=== PATIENT | male | born 1985 | race Caucasian/White ===

== ENCOUNTER 2022-06-22 12:51 | Emergency (ER) | payer SELFPAY ==
[2022-06-22 13:01] VITALS: BP 146/86; PULSE 86; RESP 14; TEMP 36.4; O2SAT 99
--- NOTE | 2022-06-22 13:15 | DI.CT_ITS ---
Exam(s) CT THORACIC LUMBAR SPINE WO EXAM: CT THORACIC LUMBAR SPINE WO CLINICAL HISTORY: tree fell on him, pain. TECHNIQUE: Imaging Protocol: Axial computed tomography images with coronal and sagittal reformatted images were created and reviewed. COMPARISON: No exams were available for comparison FINDINGS: The examination is limited due to patient motion artifact. Bones: No fractures or dislocations are seen. The alignment of the spine is normal including the cerv icothoracic junction and the thoracolumbar junction. Soft tissues: The soft tissues are unremarkable. No large disk herniations are identified. Incidental note is made of an azygos lobe in the lungs. This is a normal variant. IMPRESSION: No acute fracture or subluxation in the thoracic or lumbar spine. RADIATION DOSE DELIVERED: 1,115.5mGy.cm Total DLP DATA REPOSITORY: All CT scans at this facility are submitted to the National Radiology Data Registry (NRDR) Dose Index Registry (DIR) with the [employer] ([employer]). RADIATION OPTIMIZATION: All CT scans at this facility use at least one of these dose optimization te chniques: automated exposure control; mA and/or kV adjustment per patient size (includes targeted exa ms where dose is matched to clinical indication); or iterative reconstruction.
--- NOTE | 2022-06-22 13:20 | ED.GENADUL_ITS ---
Discharge Plan Disposition Patient Disposition: Home Condition: Stable Discharge Details Clinical Impression: Contusion of back Primary Care Provider: Julita,Local ED Provider: Jeevan Fisher Home Meds and New Rx's Prescriptions: Continued ibuprofen 800 mg tablet 800 mg PO Q8H PRN (Reason: pain) Qty: 42 0RF cyclobenzaprine 5 mg tablet See Rx Instructions PO Q8H PRN (Reason: spasm) Qty: 60 0RF Label Comments: Pt has but hasnt really taken them Rx Instructions: 1-2 tabs PO every 8 hours PRN; Discharge Instructions Instructions: Contusion in Adults (ED) Additional Instructions: if pain continues in a week see your primary care provider if you have worsening pain, or new pain such as chest pain return to the emergency department Medical Decision Making 36 yo male with no chronic medical problems comes in with cc of back pain. He states a week ago he was on the ground helping take a branch down off a tree when the branch fell and landed on his back. Denies loc or head trauma. HAs had pain since that is mildly improved so came here for an evaluation. Denies head pain, chest pain, neck pain, abdomen pain, extremity pain. He does have a 2cm contusion of the mid back over l1. HAs mild tenderness to the lower thoracic and upper lumbar vertebrae, no stepoffs. No cervical spine tenderness. No saddle anesthesia, normal peripheral pulses and sensation. Will obtain ct thoracic and lumbar spine to evaluate for fracture. No chest or abdomen tenderness and no signs of trauma to the head so do not feel additional imaging indicated. imaging unremarkable and no new pain, suspect vertebral contusion. He is stable for d/c, return precautions given and advised to f/u with pcp Differential Diagnosis Differential Diagnosis: fracture, contusion Imaging Data Radiologic Study: Attestation: I personally reviewed and interpreted this imaging study as follows: Imaging: CT Scan Radiologist's impression: no acute findings HPI General Mode of arrival: ambulatory . Date/Time Provider Initiated Documentation: 06/22/22 13:14 . Limitations to Documentation: no limitations . Information obtained by: patient . History of Present Illness 36 year old M presents to the emergency department with the chief complaint of back pain, described as moderate, Quality is described as aching, and is localized to the back. Patient reports no radiation. Patient started experiencing this week(s) (1) and it has been constant. Rest improves symptom(s), Movement worsens symptoms . Patient notes no other symptoms.. Patient did receive the following treatments prior to arrival, none Related Data Home Medications Medication Instructions Recorded Confirmed cyclobenzaprine 5 mg tablet See Rx Instructions PO Q8H PRN 07/19/21 06/22/22 spasm #60 tabs ibuprofen 800 mg tablet 800 mg PO Q8H PRN pain #42 tabs 07/19/21 06/22/22 Previous Rx's Medication Instructions Recorded cyclobenzaprine 5 mg tablet See Rx Instructions PO Q8H PRN 07/19/21 spasm #60 tabs ibuprofen 800 mg tablet 800 mg PO Q8H PRN pain #42 tabs 07/19/21 Allergies Allergy/AdvReac Type Severity Reaction Status Date / Time Sulfa (Sulfonamide Allergy Intermediate Hives Verified 06/22/22 13:05 Antibiotics) General Stated Complaint: Nk/Back Pain SHELLEY: 3 Review of Systems All systems reviewed & are unremarkable except as noted in HPI and below Constitutional Constitutional: Denies chills, Denies fever(s) and Denies weakness Cardiovascular Cardiovascular: Denies chest pain and Denies dyspnea Respiratory Respiratory: Denies cough and Denies dyspnea Gastrointestinal Gastrointestinal: Denies abdominal pain, Denies nausea and Denies vomiting Genitourinary Genitourinary: Denies dysuria Musculoskeletal Musculoskeletal: Denies joint swelling Integumentary/Breasts Skin/Breast: Denies rash Neurologic Neurologic: Denies weakness PFSH All Active Problems (Updated 06/22/22 @ 14:38 by Jeevan Fisher MD) Contusion of back (Acute) Trapezius muscle spasm (Acute) Left Left shoulder pain (Acute) Tobacco abuse (Acute) Surgical History History of shoulder surgery Left - 2014 Social History Smoking/Tobacco Use Status: Current every day Smokeless tobacco user: chewing tobacco Quit status: not considering quitting Counseling given: provider counseling Smoking risk assessment performed?: Yes Alcohol Intake: current Alcohol Intake frequency: 0-2 drinks per day Drug use: Never Substance use type: does not use Exam Const General: no acute distress Orientation: alert HENMT Head: normal to inspection Ears: external ears normal General nose exam: external nose normal Mouth: moist mucous membranes Eyes General: appearance normal, both eyes and all related structures Neck Neck: normal visual inspection Resp Effort & Inspection: normal respiratory effort and able to speak in complete sentences Cardio Rate: regular rate GI Palpation: soft and nontender Back/Spine/Pelvis Back: no CVA tenderness Cervical Spine: No cervical spinal tenderness Thoracic/Lumbar Spine: thoracic spinal tenderness and lumbar spinal tenderness Skin General skin exam: no rashes or lesions noted Neuro General: patient alert and patient oriented x3 Extrem General: normal to inspection Psych Mental Status: mental status grossly normal Course Vital Signs Vital signs: Vital Signs Temperature 36.4 C 06/22/22 13:01 Pulse 86 06/22/22 13:01 Respiratory Rate 14 06/22/22 13:01 Blood Pressure 146/86 H 06/22/22 13:01 Pulse Oximetry 99 06/22/22 13:01 Temperature 36.4 C 06/22/22 13:01 Temperature Source Tympanic 06/22/22 13:01 Pulse 86 06/22/22 13:01 Respiratory Rate 14 06/22/22 13:01 Respiratory Effort 06/22/22 13:03 Blood Pressure 146/86 H 06/22/22 13:01 Blood Pressure Position Sitting 06/22/22 13:01 Pulse Oximetry 99 06/22/22 13:01 Oxygen Delivery Method Room Air 06/22/22 13:01 Oxygen Flow Rate 0 06/22/22 13:01 Pain Level 8 06/22/22 13:06 PAWSS Have you Been Recently Intoxicated or Drunk Within the Last 30 days?: No Have you Ever Experienced Previous Episodes of Alcohol Withdrawal?: No Have you ever Experienced Withdrawal Seizures?: No Have you ever Experienced Delirium Tremens(DT)s?: No Have you ever undergone Alcohol Rehabilitation Treatment (i.e, inpt ot outpatient treatment programs)?: No Have you ever Experienced Blackouts?: No Have you ever Combined Alcohol with other Downers within the last 90 days?: No Have you ever Combined Alcohol with any other Substance of Abuse during the last 90 days?: No Result: 0
--- NOTE | 2022-06-22 13:55 | DI.VRAD_ITS ---
PROCEDURE INFORMATION: Preliminary report Exam: CT Thoracic Spine Without Contrast Exam date and time: 06/22/2022 1:30 PM Age: 36 years old Clinical indication: Injury or trauma; Other: Tree fell on him, pain; Blunt trauma (contusions or hematomas); Injury date: 06/18/22 TECHNIQUE: Imaging protocol: Computed tomography of the thoracic spine without contrast. COMPARISON: No relevant prior studies available. FINDINGS: Bones/joints: No acute bony injury or malalignment in the thoracic spine. Schmorl's nodes. Soft tissues: Unremarkable appearance of the paraspinous soft tissues. IMPRESSION: No acute bony injury or malalignment in the thoracic spine. PROCEDURE INFORMATION: Preliminary report Exam: CT Lumbar Spine Without Contrast Exam date and time: 06/22/2022 1:30 PM Age: 36 years old Clinical indication: Injury or trauma; Other: Tree fell on him, pain; Blunt trauma (contusions or hematomas); Injury date: 06/18/22 TECHNIQUE: Imaging protocol: Computed tomography of the lumbar spine without contrast. COMPARISON: No relevant prior studies available. FINDINGS: Motion artifact is present. Bones/joints: No acute bony injury or malalignment in the lumbar spine. Soft tissues: Unremarkable appearance of the paraspinous soft tissues. IMPRESSION: No acute bony injury or malalignment in the lumbar spine. Dictated and Authenticated by: Jeff Leahy MD. Ordering:LOUISE Chew MD
[2022-06-22 14:44] VITALS: BP 131/66; PULSE 82; TEMP 36.7; O2SAT 95
== END 2022-06-22 14:46 | disposition home or self-care (01) ==
PROVIDERS: Emergency Provider Emergency Medicine
DX: S30.0XXA Contusion of lower back and pelvis, initial encounter (principal); W20.8XXA Other cause of strike by thrown, projected or falling object, initial encounter
CPT/HCPCS: 99284; 72128; 72131; 99283

== ENCOUNTER 2023-04-12 17:47 | Emergency (ER) | payer SELFPAY ==
[2023-04-12 17:51] VITALS: BP 165/144; PULSE 105; RESP 14; O2SAT 96
--- NOTE | 2023-04-12 18:04 | ED.GENADUL_ITS ---
Discharge Plan Disposition Patient Disposition: Home Condition: Stable Discharge Details Clinical Impression: Pain, dental Primary Care Provider: Julita,Local ED Provider: Vladislav Case Home Meds and New Rx's Prescriptions: New amoxicillin-pot clavulanate 875-125 mg tablet 1 tab PO BID 7 Days Qty: 14 0RF No Action ibuprofen 800 mg tablet 800 mg PO Q8H PRN (Reason: pain) Qty: 42 0RF cyclobenzaprine 5 mg tablet See Rx Instructions PO Q8H PRN (Reason: spasm) Qty: 60 0RF Patient Comments: Pt has but hasnt really taken them Rx Instructions: 1-2 tabs PO every 8 hours PRN; Discharge Instructions Instructions: Toothache (ED) Additional Instructions: Please seek dental follow-up within the next week. Stand Alone Forms: Work Release Medical Decision Making 37-year-old male presents with acute on chronic tooth pain right upper molar, partially cracked and loose medial cusp of right upper molar after eating corn chowder this evening, no evidence of periapical abscess or deep space infection of head or neck, patient is tolerating secretions normal voice nontoxic. Patient adamant that I remove the loose portion of his tooth. I counseled him extensively that I am not a dentist however to assist with his discomfort I will anesthetize the region and if medial cusp is loose enough I will attempt to remove. I counseled patient extensively that he will need to see a dentist for a proper root canal given likely be other half of this tooth and it's degraded carious root system will need to be properly removed with likely root canal. Patient to be started on Augmentin empirically will anesthetized with periapical block bupivacaine 0.5% 18: 21 performed periapical block to right upper molar, despite traction on medial aspect of fractured molar dental fragment was unable to be extracted. Patient will need to seek dental follow-up. Home care instructions and return precautions given HPI General Date/Time Provider Initiated Documentation: 04/12/23 17:53 . HPI Narrative: 37-year-old male presents with acute on chronic tooth pain, was eating corn chowder tonight and felt his top right molar cracked and loosened, patient requesting that I remove his tooth. Related Data Home Medications Medication Instructions Recorded Confirmed cyclobenzaprine 5 mg tablet See Rx Instructions PO Q8H PRN 07/19/21 06/22/22 spasm #60 tabs ibuprofen 800 mg tablet 800 mg PO Q8H PRN pain #42 tabs 07/19/21 06/22/22 amoxicillin 875 mg-potassium 1 tab PO BID 7 days #14 tabs 04/12/23 clavulanate 125 mg tablet Previous Rx's Medication Instructions Recorded cyclobenzaprine 5 mg tablet See Rx Instructions PO Q8H PRN 07/19/21 spasm #60 tabs ibuprofen 800 mg tablet 800 mg PO Q8H PRN pain #42 tabs 07/19/21 amoxicillin 875 mg-potassium 1 tab PO BID 7 days #14 tabs 04/12/23 clavulanate 125 mg tablet Allergies Allergy/AdvReac Type Severity Reaction Status Date / Time Sulfa (Sulfonamide Allergy Intermediate Hives Verified 06/22/22 13:05 Antibiotics) General Stated Complaint: DentalOral SHELLEY: 3 Review of Systems Narrative: Review of Systems Constitutional: negative Eyes: negative ENT: Tooth pain Cardiovascular: negative Respiratory: negative Gastrointestinal: negative : negative Musculoskeletal: negative Skin: negative Neurologic: negative Psych: negative PFSH All Active Problems (Updated 04/12/23 @ 18:23 by Vladislav Case MD) Pain, dental (Acute) Trapezius muscle spasm (Acute) Left Left shoulder pain (Acute) Tobacco abuse (Acute) Surgical History History of shoulder surgery Left - 2015 Social History Smoking/Tobacco Use Status: Current every day Smokeless tobacco user: chewing tobacco Quit status: not considering quitting Counseling given: provider counseling Smoking risk assessment performed?: Yes Alcohol Intake: current Alcohol Intake frequency: 0-2 drinks per day Drug use: Never Substance use type: does not use Exam Narrative Exam Narrative: Physical Examination General: alert, awake, cooperative, resting comfortably, no acute distress HEENT: normocephalic, atraumatic; PERRL, EOM intact, conjunctiva normal; no nasal discharge; moist mucous membranes, oral and pharyngeal mucosa normal, tolerating secretions; carious and partially fractured right upper molar appears acute on chronic in nature, most medial cusp of molar is loose to the touch, no periapical abscess no signs of deep space infection; tongue secretions normal voice Neck: supple, trachea midline; full ROM Chest: normal to inspection Respiratory: normal respiratory effort, speaking in full sentences Skin: no lesions, rashes or trauma appreciated Course Vital Signs Vital signs: Vital Signs Pulse 105 H 04/12/23 17:51 Respiratory Rate 14 04/12/23 17:51 Blood Pressure 165/144 H 04/12/23 17:51 Pulse Oximetry 96 04/12/23 17:51 Pulse 105 H 04/12/23 17:51 Respiratory Rate 14 04/12/23 17:51 Respiratory Effort Normal, Non-Labored 04/12/23 17:55 Blood Pressure 165/144 H 04/12/23 17:51 Blood Pressure Position Sitting 04/12/23 17:51 Pulse Oximetry 96 04/12/23 17:51 Oxygen Delivery Method Room Air 04/12/23 17:51 Oxygen Flow Rate 0 04/12/23 17:51 Comment pt states he is uncomfortable but not in pain. 04/12/23 17:51 PAWSS Have you Been Recently Intoxicated or Drunk Within the Last 30 days?: Yes Have you Ever Experienced Previous Episodes of Alcohol Withdrawal?: No Have you ever Experienced Withdrawal Seizures?: No Have you ever Experienced Delirium Tremens(DT)s?: No Have you ever undergone Alcohol Rehabilitation Treatment (i.e, inpt ot outpatient treatment programs)?: No Have you ever Experienced Blackouts?: Yes Have you ever Combined Alcohol with other Downers within the last 90 days?: No Have you ever Combined Alcohol with any other Substance of Abuse during the last 90 days?: No Positive Blood Alcohol level on Presentation? [PCS.BAL]: Unable to Obtain Evidence of Increased Autonomic Activity (i.e. HR>120, tremor, sweating, agitation, nausea)?: No Result: 2
[2023-04-12] MEDS: Amoxicillin 875/Clav. 125 TAB PO (18:05)
[2023-04-12] MEDS: Bupivacaine 0.5% Pres-Free 30 ML VIAL IJ (18:32)
== END 2023-04-12 18:33 | disposition home or self-care (01) ==
PROVIDERS: Emergency Provider Emergency Medicine
DX: R68.84 Jaw pain (principal); K08.89 Other specified disorders of teeth and supporting structures
CPT/HCPCS: 64400

== ENCOUNTER 2024-02-03 11:55 | Emergency (ER) | payer MEDICAID, SELFPAY ==
[2024-02-03] VITALS (9 sets, daily range): BP systolic 138–147; BP diastolic 83–107; PULSE 86–111; RESP 10–22; O2SAT 97–143
--- NOTE | 2024-02-03 12:00 | RT.EKG_ITS ---
APPROVED REPORT Exam: Resting ECG Reason for Exam: Dizziness Patient Location: E HR:118 bpm ECG Measurements Heart Rate 118 AXIS WI 150 P 45 QRSd 101 QRS -14 QT 332 T 52 QTc 466 Conclusion Sinus tachycardia...rate> 99 ST elevation, consider inferior injury...ST >0.08mV, II III aVF
--- NOTE | 2024-02-03 12:21 | ED.GENADUL_ITS ---
Discharge Plan Disposition Patient Disposition: Home Condition: Stable Discharge Details Clinical Impression: Dizziness, Vertigo, Hypomagnesemia Primary Care Provider: Unknown,Unknown ED Provider: Jeevan Fisher Home Meds and New Rx's Prescriptions: New meclizine 25 mg tablet 25 mg PO BID PRN (Reason: dizziness) Qty: 30 0RF Continued methylprednisolone [Medrol (Fito)] 4 mg tablets,dose pack See Rx Instructions .ROUTE .COMPLEX Rx Instructions: orally per package directions Discontinued tramadol 50 mg tablet 50 mg PO QID Rx Instructions: x 7 days Discharge Instructions Instructions: Hypomagnesemia Additional Instructions: Follow-up with your primary care provider especially if symptoms continue in 1 to 2 weeks If you feel more ill or have severe worsening dizziness or new symptoms such as chest pain return to the emergency department for reevaluation. Stand Alone Forms: Work Release HPI General Mode of arrival: ambulatory . Date/Time Provider Initiated Documentation: 02/03/24 11:59 . Limitations to Documentation: no limitations . Information obtained by: patient . History of Present Illness 38 year old M presents to the emergency department with the chief complaint of dizziness, described as moderate, Patient started experiencing this hour(s) (5) and it has been constant. No relieving factors improve symptom(s), No exacerbating factors reported . Patient notes denies chest pain and shortness of breath. Patient did receive the following treatments prior to arrival, none Related Data Home Medications ?Medication ?Instructions ?Recorded ?Confirmed meclizine 25 mg tablet 25 mg PO BID PRN dizziness #30 tabs 02/03/24 methylprednisolone 4 mg tablets in See Rx Instructions PO .COMPLEX 02/03/24 02/03/24 a dose pack (Medrol (Fito)) Previous Rx's ?Medication ?Instructions ?Recorded meclizine 25 mg tablet 25 mg PO BID PRN dizziness #30 tabs 02/03/24 Allergies Allergy/AdvReac Type Severity Reaction Status Date / Time Sulfa (Sulfonamide Allergy Intermediate Hives Verified 02/03/24 12:06 Antibiotics) General Stated Complaint: Dizzy/Sync SHELLEY: 3 Review of Systems All systems reviewed & are unremarkable except as noted in HPI and below Constitutional Constitutional: Denies chills, Denies fever(s), Denies headache(s) and Denies weakness Eyes Eyes: Denies loss of vision ENT Ears, Nose, Mouth, and Throat: Reports dizziness and Denies headache(s) Cardiovascular Cardiovascular: Denies chest pain and Denies dyspnea Respiratory Respiratory: Denies cough and Denies dyspnea Gastrointestinal Gastrointestinal: Denies abdominal pain, Denies nausea and Denies vomiting Integumentary/Breasts Skin/Breast: Denies rash Neurologic Neurologic: Reports dizziness, Denies headache(s), Denies loss of vision and Denies weakness Exam Const General: no acute distress Orientation: alert HENTX Head: normal to inspection Ears: external ears normal General nose exam: external nose normal Mouth: moist mucous membranes Eyes General: appearance normal, both eyes and all related structures Neck Neck: normal visual inspection Resp Effort & Inspection: normal respiratory effort and able to speak in complete sentences Auscultation: clear to auscultation bilaterally Cardio Jugular venous pressure: no JVD Rate: regular rate Heart Sounds: no murmurs GI Palpation: nontender Skin General skin exam: no rashes or lesions noted Neuro General: patient alert and patient oriented x3 Cranial Nerves: CN's II-XI intact bilaterally Cognition: normal cognition Speech: speech normal Gait: normal gait Motor: muscle tone normal throughout Extrem General: normal to inspection Psych Mental Status: mental status grossly normal Course Vital Signs Vital signs: Vital Signs Pulse 111 H 02/03/24 12:04 Respiratory Rate 22 02/03/24 12:04 Blood Pressure 138/107 H 02/03/24 12:04 Pulse Oximetry 99 02/03/24 12:04 Pulse 111 H 02/03/24 12:04 Respiratory Rate 22 02/03/24 12:04 Blood Pressure 138/107 H 02/03/24 12:04 Blood Pressure Position Supine 02/03/24 12:04 Pulse Oximetry 99 02/03/24 12:04 Oxygen Delivery Method Room Air 02/03/24 12:04 Oxygen Flow Rate 0 02/03/24 12:04 Pain Level 6 02/03/24 12:04 Medical Decision Making 38-year-old male who denies any significant past medical history comes in with feeling dizziness and right arm numbness since this morning. He has issues with chronic back pain and was put on prednisone and cyclobenzaprine yesterday and has taken 2 doses of the cyclobenzaprine. He is not sure if he is taken cyclobenzaprine in the past. He says it feels like the room is spinning sensation he denies any fevers or chills, no chest pain or difficulty breathing. He is alert and oriented x 4 on arrival, he has no focal neurological deficits and cranial nerves II through XII are intact. He does have some mild horizontal nystagmus when he looks to the right in both eyes. I suspect peripheral vertigo, no findings to suggest central vertigo. Will check CBC and CMP to evaluate for anemia and electrolyte abnormality though he does have any chest pain will obtain troponin to exclude cardiac etiology. Will also obtain a CTA to exclude dissection as a possible cause of his vertigo. Labs unremarkable other than mildly low magnesium which was supplemented orally. Due to volume in the ER he did not go to CTA, on reassessment he is asymptomatic and feels significantly better. Discussed waiting to do a CTA though my suspicion for dissection is low and given he is improved he does not want stay for this which I feel is reasonable. He will follow-up with his PCP and return precautions given Differential Diagnosis Differential Diagnosis: peripheral vertigo, dehydration, anemia Lab Data Lab results reviewed: Yes I reviewed the patient's lab results. ECG Data Attestation: I personally reviewed and interpreted this ECG (s) as follows: Prior ECG tracings: not available for review Interpretation: sinus tachycardia, rate of 118, no stemi Quality:SDOH Health Related Social Needs: No Data to Display [facility] All Active Problems (Updated 02/03/24 @ 14:33 by Jeevan Fisher MD) Hypomagnesemia (Acute) Vertigo (Acute) Dizziness (Acute) Trapezius muscle spasm (Acute) Left Left shoulder pain (Acute) Tobacco abuse (Acute) Surgical History History of shoulder surgery Left - 2015 Social History Smoking/Tobacco Use Status: Current every day Smokeless tobacco user: chewing tobacco Quit status: not considering quitting Counseling given: provider counseling Smoking risk assessment performed?: Yes Alcohol Intake: current Alcohol Intake frequency: 0-2 drinks per day Drug use: Never Substance use type: does not use Do you feel safe at home: Yes Do you feel safe in your relationship?: Yes
[2024-02-03 13:08] LABS: Abs Immature Grans 0.03 10^3/uL (0.0-0.06); Absolute Basophil Count 0.02 10^3/uL (0.0-0.2); Absolute Lymphocyte Count 0.78 10^3/uL (1.2-3.4); Absolute Monocyte Count 0.25 10^3/uL (0.1-0.8); Absolute Neutrophil Count 5.94 10^3/uL (1.2-6.7); Basophils % 0.3 %; HCT 44.6 % (40.0-50.0); HGB 15.3 g/dL (13.5-17.5); Immature Grans % 0.4 %; Lymphocytes % 11.1 %; MCH 31.3 pg (27.0-33.0); MCHC 34.3 % (32.0-36.0); MCV 91 fL (80-95); MPV 8.6 fL (8.0-11.0); Monocytes % 3.6 %; Neutrophils % 84.6 %; Platelet Count 245 10^3/uL (130-400); RBC 4.89 10^6/uL (4.36-5.78); RDW 12.5 % (11.8-14.1); RDW-SD 41.7 fL; WBC 7.02 10^3/uL (4.4-10.8)
[2024-02-03] MEDS: Meclizine 25 MG TAB PO (13:31)
[2024-02-03 13:32] LABS: ALT 57 U/L (16-63); AST 39 U/L (15-37); Albumin 4.2 g/dL (3.4-5.0); Alkaline Phosphatase 57 U/L (46-116); Anion Gap 12.3 mmol/L (3-11); BUN 11 mg/dL (7-18); Bilirubin, Total 0.46 mg/dL (0.2-1.0); CO2 26.7 mmol/L (21.0-32.0); CREATININE 0.9 mg/dL (0.70-1.30); Calcium 9.1 mg/dL (8.5-10.1); Chloride 98 mmol/L (98-107); Estimated GFR 113.51 (mL/min/1.73m2); Glucose 112 mg/dL (74-106); Magnesium 1.5 mg/dL (1.8-2.4); Potassium 3.9 mmol/L (3.5-5.1); Sodium 137 mmol/L (136-145); TSH (W/Ref FT4) 1.09 uIU/mL (0.36-3.74); Total Protein 7.6 g/dL (6.4-8.2); Troponin I 4 ng/L (<or=76)
[2024-02-03] MEDS: Normal Saline 1,000 ML 1000 ML IV (13:32)
[2024-02-03 13:52] LABS: Bilirubin Negative (Negative); Blood Negative (Negative); Clarity Clear (Clear); Glucose Negative (Negative); Ketones 15 mg/dL (Negative); Leukocyte Esterase Negative (Negative); Nitrite Negative (Negative); Urobilinogen 0.2 mg/dL (Up to 0.2)
[2024-02-03] MEDS: Magnesium Oxide 400 MG TAB 800 MG PO (14:31)
== END 2024-02-03 14:53 | disposition home or self-care (01) ==
PROVIDERS: Emergency Provider Emergency Medicine
DX: R42 Dizziness and giddiness (principal); E83.42 Hypomagnesemia
CPT/HCPCS: 36415; 80053; 93005; 96360; 99284; 81003; 83735; 84443; 84484; 85025; 93010; 99283

== ENCOUNTER 2024-02-23 07:18 | Outpatient (CLI) | payer MEDICAID, SELFPAY ==
[2024-02-23 07:29] VITALS: BP 123/89; PULSE 92; RESP 18; TEMP 37.4; O2SAT 97
--- NOTE | 2024-02-23 07:37 | PDOC.PAIN ---
Date of service: 02/23/24 Time of Service: 08:03 Pain Managment Procedure Note Procedure Note Procedure Note: Lumbar Interlaminar Epidural Steroid Injection ? Location: L5-S1 ? Pre-procedure Diagnosis: M54.16- Radiculopathy, LUMBAR region ? Post-procedure Diagnosis:? The same as above ? Sedation:? ? None ? Medication: Depo-Medrol 80 mg, Omnipaque 1 mL ? Estimated blood loss:? less than 2 cc ? Surgeon:? Brian Lobo MD COMMENT: ? Procedure Detail:? The procedure and potential risks were explained to the patient and informed written consent was obtained. The patient was escorted to the procedure room and placed in the prone position. Pillows were utilized for proper positioning and comfort. Time out was performed in the procedure room with nursing staff confirming the patient's identity, procedure to be performed, allergies, and any blood thinning or anti-platelet medications.? The patient's neck and upper back was prepped with ChloraPrep and draped in a sterile fashion. Sterile technique was maintained throughout the procedure.? Sterile gloves were used, a face mask was worn, and new single dose vials of all medications were used with the top being swabbed with alcohol and given time to dry prior to withdrawal of medication. Lidocane 1% was used to anesthetize the skin.Using a 25-gauge 1.5 inch needle, 1% lidocaine was instilled into the superficial soft tissue overlying the targeted area to provide local anesthesia. With fluoroscopic guidance, a 17 -gauge Tuohy needle was advanced toward the interlaminar space of L5-S1. The needle was then advance through the ligamentum flavum and into the posterior epidural space using the loss of resistance technique. Correct needle placement was confirmed through review of the AP and contralateral oblique fluoroscopic views. A 19-gauge arrow catheter was threaded cephalad to the Left Following negative aspiration, one cc of Omnipaque 240 contrast was injected which confirmed good flow throughout the epidural space and no evidence of vascular flow or flow into adjacent compartments. Next, following negative aspiration, 1 cc's of normal saline and 80mg of Depo-Medrol was injected. The needle was gently removed. The patient tolerated the procedure well and was transported to the recovery area for observation and discharge instructions. Permanent images saved and recorded. PAIN PRE-PROCEDURE 11/24 POST-PROCEDURE 08/25 Plan:? Follow up prn. COMMENT:repeat prn. consider surg re-eval
[2024-02-23 07:47] VITALS: O2SAT 100
[2024-02-23 07:50] VITALS: O2SAT 98
[2024-02-23] MEDS: methylPREDNISolone ACETATE 80 MG/ML VIAL IJ (08:03)
[2024-02-23] MEDS: Omnipaque 240 MG/ML 50 ML BTL IJ (08:03)
--- NOTE | 2024-02-23 18:00 | DI.RAD_ITS ---
Exam(s) XR PAIN CLINIC LUMBAR SP 2V EXAM: XR PAIN CLINIC LUMBAR SP 2V CLINICAL HISTORY: DX: Lumbar Radiculopathy. TECHNIQUE: Fluoroscopy was provided for the referring physician for guidance with performing pain cl inic injection procedure. COMPARISON: No exams were available for comparison FINDINGS: Please see procedure note for details. Fluoro time: 18 seconds RADIATION DOSE DELIVERED: Ka,r=3.51 mGy
== END 2024-02-23 07:19 | disposition home or self-care (01) ==
LOC: PC 07:19
PROVIDERS: Visit Provider Anesthesiology Pain Medicine
DX: M54.16 Radiculopathy, lumbar region (principal)
CPT/HCPCS: 00123; 62323; 72100; J1010; Q9967

== ENCOUNTER 2025-01-25 02:41 | Outpatient (CLI) | payer OTHER, MEDICAID, SELFPAY ==
--- NOTE | 2025-01-25 | DI.RAD_ITS ---
Exam(s) XR KNEE RT 3V AP,LAT,LAURIE EXAM: XR KNEE RT 3V AP,LAT,LAURIE CLINICAL HISTORY: DISABILITY Z02.71 LEFT SHOULDER RT KNEE PAIN. TECHNIQUE: 2D digital imaging was performed. Three views. COMPARISON: No exams were available for comparison FINDINGS: BONES: No acute fracture is present. No bony destructive lesion is seen. JOINTS: The knee is normally aligned. The joint spaces are maintained. No significant degenerative changes. No joint effusion is seen. SOFT TISSUE: Normal. IMPRESSION: Unremarkable radiographs of the right knee. DATA REPOSITORY: RADIATION DOSE DELIVERED:
--- NOTE | 2025-01-25 | DI.RAD_ITS ---
Exam(s) XR SHOULDER LT COMPLETE 2+V EXAM: XR SHOULDER LT COMPLETE 2+V CLINICAL HISTORY: DISABILITY Z02.71 LEFT SHOULDER RT KNEE PAIN. TECHNIQUE: 2D digital imaging was performed. Three views. COMPARISON: No exams were available for comparison FINDINGS: BONES: No acute fracture is present. No bony destructive lesion is seen. JOINTS: No dislocation present. There is no significant spurring at the AC joint. Glenohumeral joint is maintained. There is spurring at the glenoid. There are degenerative subchondral cysts at the margin of the glenoid. SOFT TISSUE: Normal. IMPRESSION: [id number] degenerative changes of the glenohumeral joint. DATA REPOSITORY: RADIATION DOSE DELIVERED:
== END 2025-01-25 03:01 ==
PROVIDERS: PCP Physician Assistant Medical; Visit Provider Pediatrics Pediatric Rheumatology
DX: Z02.71 Encounter for disability determination (principal); M25.561 Pain in right knee; M25.512 Pain in left shoulder
CPT/HCPCS: 73562; 73030